=== PATIENT | male | born 1980 | race Caucasian/White ===

== ENCOUNTER 2019-02-28 22:24 | Emergency (ER) | payer SELFPAY ==
[~2019-02-28] VITALS: Ht 180.3 cm; Wt 99.8 kg
[2019-03-01 00:41] VITALS: BP 128/75
== END 2019-03-01 01:33 | disposition home or self-care (01) ==
LOC: ER 22:24
DX: J02.9 Acute pharyngitis, unspecified (principal)

== ENCOUNTER 2022-12-12 | Emergency (ER) | payer MEDICAID, OTHER ==
[~2022-12-12] VITALS: Ht 180.3 cm; Wt 83.6 kg
[2022-12-12 00:55] VITALS: BP 148/89
[2022-12-12] MEDS ORDERED: IBUP800T27 PO (01:51)
[2022-12-12] MEDS ORDERED: CEPH-510 PO (01:51)
== END 2022-12-12 02:10 | disposition home or self-care (01) ==
LOC: ER
DX: L03.011 Cellulitis of right finger (principal)

== ENCOUNTER 2023-07-22 20:21 | Emergency (ER) | payer MEDICAID ==
[~2023-07-22] VITALS: Ht 182.9 cm; Wt 85.0 kg
[~2023-07-22 20:21] MED LIST: CEPH-510 PO; IBUP-1456 PO
[2023-07-22] MEDS ORDERED: VANCOMYCIN 1GM/250ML 250 ML IV ONE (21:30)
[2023-07-22 22:12] LABS: Albumin 4.4 g/dL (3.2-4.8); Alkaline Phosphatase 92 U/L (46-116); Anion Gap 3 (5-15); Aspartate Aminotransferase 26 U/L (13-40); Blood Urea Nitrogen 12 mg/dL (9-23); Calcium 9.6 mg/dL (8.7-10.4); Carbon Dioxide 31 mmol/L (20-30); Chloride 106 mmol/L (98-107); Glucose 102 mg/dL (74-106); Potassium 3.5 mmol/L (3.5-5.1); Sodium 140 mmol/L (136-145)
[2023-07-22 22:13] LABS: Bilirubin, Total 0.5 mg/dL (0.2-1.0); Total Protein 7.6 g/dL (5.7-8.2)
[2023-07-22 22:16] LABS: Basophils # (auto) 0.1 10 ^3/uL (0-0.2); Basophils % (auto) 0.8 % (0.0-2.0); Eosinophils # (auto) 0.2 10 ^3/uL (0-0.8); Eosinophils % (auto) 2.5 % (0.0-7.0); Hematocrit 38.8 % (41.0-53.0); Hemoglobin 13.2 g/dL (13.5-17.5); Lymphocytes # (auto) 2.2 10 ^3/uL (0.4-5.4); Mean Corpuscular Hemoglobin 32.3 pg (28.0-32.0); Mean Corpuscular Volume 95.2 fL (80.0-100.0); Monocytes % (auto) 13.6 % (0.0-12.0); Neutrophils # (auto) 3.7 10 ^3/uL (1.6-8.6); Neutrophils % (auto) 52.1 % (37.0-80.0); Nucleated Red Blood Cells % 0.1 %; Red Blood Cells 4.07 10^6/uL (4.5-5.90); Red Cell Distribution Width 13.8 % (11.8-14.3)
[2023-07-22 22:23] VITALS: PULSE 89; RESP 20; TEMP 98.1; O2SAT 100
[2023-07-22] MEDS ORDERED: ONDANSETRON HCL 4 MG/2 ML VIAL ONE (22:44)
[2023-07-22] MEDS ORDERED: ONDANSETRON HCL 4 MG/2 ML VIAL IV ONE (22:45)
[2023-07-22 22:46] LABS: Alanine Aminotransferase 38 U/L (7-40)
[2023-07-22] MEDS ORDERED: CEPH500C PO (23:31)
[2023-07-22] MEDS ORDERED: BACDST PO (23:31)
[2023-07-22 23:45] VITALS: BP 110/57; PULSE 82; RESP 20; O2SAT 100
== END 2023-07-22 23:49 | disposition home or self-care (01) ==
LOC: EDBD 20:21 → ER 20:23
DX: L02.416 Cutaneous abscess of left lower limb (principal); Z79.1 Long term (current) use of non-steroidal anti-inflammatories (NSAID); Z79.899 Other long term (current) drug therapy
CPT/HCPCS: 36415; 80053; 83605; 85025; 96365; 96375; 99284; J2405; J3370

== ENCOUNTER 2023-08-10 01:46 | Emergency (ER) | payer MEDICAID ==
[~2023-08-10] VITALS: Ht 180.3 cm; Wt 90.7 kg
[~2023-08-10 01:46] MED LIST changes: +BACDST PO; +CEPH500C PO
[2023-08-10 03:02] LABS: Basophils # (auto) 0 10 ^3/uL (0-0.2); Basophils % (auto) 0.6 % (0.0-2.0); Eosinophils # (auto) 0.2 10 ^3/uL (0-0.8); Eosinophils % (auto) 2.5 % (0.0-7.0); Hematocrit 39.2 % (41.0-53.0); Hemoglobin 12.9 g/dL (13.5-17.5); Lymphocytes % (auto) 25.9 % (10.0-50.0); Mean Corpuscular Hemoglobin 31.5 pg (28.0-32.0); Mean Corpuscular Volume 95.5 fL (80.0-100.0); Monocytes # (auto) 0.9 10 ^3/uL (0-1.3); Monocytes % (auto) 11.7 % (0.0-12.0); Neutrophils # (auto) 4.5 10 ^3/uL (1.6-8.6); Neutrophils % (auto) 59.3 % (37.0-80.0); Red Cell Distribution Width 13.8 % (11.8-14.3); White Blood Cell 7.6 10^3/uL (4.4-10.8)
[2023-08-10 03:37] LABS: Alanine Aminotransferase 30 U/L (7-40); Albumin 4.1 g/dL (3.2-4.8); Alkaline Phosphatase 80 U/L (46-116); Anion Gap 4 (5-15); Aspartate Aminotransferase 16 U/L (13-40); BUN/Creatinine Ratio 19.3 (10.0-20.0); Bilirubin, Total 0.2 mg/dL (0.2-1.0); Blood Urea Nitrogen 16 mg/dL (9-23); Calcium 9.3 mg/dL (8.7-10.4); Carbon Dioxide 31 mmol/L (20-30); Chloride 107 mmol/L (98-107); Glucose 104 mg/dL (74-106); Potassium 3.6 mmol/L (3.5-5.1); Sodium 142 mmol/L (136-145)
[2023-08-10] MEDS ORDERED: SULFAMETHOX W/TRIMETH(800/160MG) DS TAB PO ONE (09:30)
[2023-08-10] MEDS ORDERED: CLINDAMYCIN HCL 150 MG CAP PO ONE (09:30)
[2023-08-10] MEDS ORDERED: IBUPROFEN 600 MG TAB PO ONE (09:30)
[2023-08-10 09:38] VITALS: BP 122/74; PULSE 80; RESP 18; O2SAT 99
[2023-08-10 09:41] VITALS: TEMP 97.7
[2023-08-10] MEDS ORDERED: CLIN300C70 PO (10:33)
[2023-08-10] MEDS ORDERED: BACDST PO (10:33)
[2023-08-10] MEDS ORDERED: IBU600T PO (10:33)
== END 2023-08-10 10:50 | disposition home or self-care (01) ==
LOC: ER 01:46 → EDBD 01:46 → ER 10:48
DX: L97.929 Non-pressure chronic ulcer of unspecified part of left lower leg with unspecified severity (principal); L03.116 Cellulitis of left lower limb; L02.426 Furuncle of left lower limb; Z79.1 Long term (current) use of non-steroidal anti-inflammatories (NSAID); Z79.899 Other long term (current) drug therapy
CPT/HCPCS: 36415; 73700; 80053; 85025; 93971

== ENCOUNTER 2023-10-01 18:09 | Emergency (ER) | payer MEDICAID ==
[~2023-10-01] VITALS: Ht 180.3 cm; Wt 95.4 kg
[~2023-10-01 18:09] MED LIST changes: +CLIN300C70 PO; +IBU600T PO
[2023-10-01 18:10] VITALS: BP 114/74; PULSE 69; RESP 18; O2SAT 97
[2023-10-01] MEDS ORDERED: HYDROcodone-ACET 10/325MG TAB PO ONE (20:00)
[2023-10-01] MEDS ORDERED: FUROSEMIDE 20 MG TAB PO ONE (20:00)
[2023-10-01 20:12] LABS: Alanine Aminotransferase 37 U/L (7-40); Albumin 4.2 g/dL (3.2-4.8); Alkaline Phosphatase 68 U/L (46-116); Anion Gap 5 (5-15); Aspartate Aminotransferase 25 U/L (13-40); BUN/Creatinine Ratio 16.7 (10.0-20.0); Bilirubin, Total 0.5 mg/dL (0.2-1.0); Blood Urea Nitrogen 16 mg/dL (9-23); Calcium 9.2 mg/dL (8.7-10.4); Carbon Dioxide 28 mmol/L (20-30); Chloride 109 mmol/L (98-107); Glucose 105 mg/dL (74-106); Potassium 3.6 mmol/L (3.5-5.1); Sodium 142 mmol/L (136-145); Total Protein 7.2 g/dL (5.7-8.2)
[2023-10-01] MEDS ORDERED: BACITRACIN-POLYMYXIN B OPTH(EYE) OINT 3.5GM OP ONE (20:30)
[2023-10-01] MEDS ORDERED: IBUPROFEN 600 MG TAB PO ONE (20:30)
[2023-10-01 20:50] LABS: Basophils # (auto) 0.1 10 ^3/uL (0-0.2); Basophils % (auto) 1.2 % (0.0-2.0); Eosinophils # (auto) 0.2 10 ^3/uL (0-0.8); Eosinophils % (auto) 3.3 % (0.0-7.0); Hemoglobin 13.8 g/dL (13.5-17.5); Lymphocytes % (auto) 41.5 % (10.0-50.0); Mean Corpuscular Hemoglobin 31.7 pg (28.0-32.0); Mean Corpuscular Hgb Conc. 33.7 g/dL (32.0-36.0); Mean Corpuscular Volume 94.3 fL (80.0-100.0); Monocytes # (auto) 0.6 10 ^3/uL (0-1.3); Monocytes % (auto) 12.1 % (0.0-12.0); Neutrophils % (auto) 41.9 % (37.0-80.0); Nucleated Red Blood Cells % 0.2 %; Red Blood Cells 4.35 10^6/uL (4.5-5.90); Red Cell Distribution Width 13.4 % (11.8-14.3); White Blood Cell 4.9 10^3/uL (4.4-10.8)
[2023-10-01 20:51] LABS: Blood Alcohol 3.8 mg/dL (<10); CRP High Sensitivity < 0.02 mg/dL (<1.0)
[2023-10-01 21:49] LABS: Erythrocyte Sedimentation Rate 2 mm/hr (0-20)
== END 2023-10-01 23:26 | disposition left against medical advice (07) ==
LOC: ER 18:09 → EDBD 18:09 → ER 23:26
DX: M79.662 Pain in left lower leg (principal); R07.89 Other chest pain; Z53.21 Procedure and treatment not carried out due to patient leaving prior to being seen by health care provider
CPT/HCPCS: 36415; 71045; 80053; 80320; 83605; 85025; 85652; 86141; 87040